=== PATIENT | female | born 2000 | race Caucasian/White ===

== ENCOUNTER 2021-12-15 11:28 | Outpatient (CLI) | payer OTHER, SELFPAY ==
[2021-12-15 19:02] LABS: Basophils Absolute Auto 0.1 K/mm3 (0.0-0.1); Basophils Percent Auto 0.9 % (0.2-1.2); Eosinophils Absolute Auto 0.1 K/mm3 (0-0.3); Eosinophils Percent Auto 1.5 % (0-4.4); Hematocrit 43.5 % (37.0-47.0); Hemoglobin 14.3 g/dL (12.0-15.0); Immature Granulocyte Absolute 0.12 K/mm3 (0.00-0.031); Immature Granulocyte Percent A 1.4 % (0-0.5); Lymphocytes Absolute Auto 2.09 K/mm3 (0.9-3.2); Mean Corpuscular HGB Conc 32.9 g/dl (32-36); Mean Corpuscular Hemoglobin 30.3 pg (26-34); Mean Corpuscular Volume 92.2 fl (80-100); Mean Platelet Volume 9.2 fl (7.4-10.4); Monocytes Absolute Auto 0.6 K/mm3 (0.1-0.6); Monocytes Percent Auto 6.5 % (2.6-8.5); Neutrophils Absolute Auto 5.7 K/mm3 (1.3-6.7); Neutrophils Percent Auto 65.7 % (45.5-73.1); Platelet Count Result 411 k/mm3 (150-375); Red Blood Count 4.72 M/mm3 (4.2-5.4); Red Cell Distribution Width 12.1 % (11.5-14.5); White Blood Count 8.7 K/mm3 (4.5-10.0)
[2021-12-15 19:06] LABS: Alanine Aminotransferase 81 U/L (6-35); Albumin Level 4.6 g/dL (3.5-5.1); Alkaline Phosphatase 77 U/L (38-126); Anion Gap 9 mmol/L (8-16); Aspartate Amino Transferase 113 U/L (14-36); Bilirubin,Total 0.3 mg/dL (0.2-1.3); Blood Urea Nitrogen 9 mg/dL (7-17); Calcium 9.4 mg/dL (8.4-10.2); Carbon Dioxide 30 mmol/L (22-30); Chloride 100 mmol/L (98-107); Cholesterol 183 mg/dL (0-200); Estimated Glomerular Filt Rate > 60; Glucose 161 mg/dL (65-110); HDL Direct 50 mg/dL; Potassium 4.2 mmol/L (3.4-5.0); Sodium 139 mmol/L (137-145); Triglycerides 69 mg/dL (<150)
[2021-12-15 19:31] LABS: Hemoglobin A1C 6.5 % (<5.7)
[2021-12-15 19:33] LABS: LDL Cholesterol Direct 114 mg/dL
[2021-12-15 20:32] LABS: Vitamin D 25 Hydroxy 19.2 ng/mL
== END 2021-12-15 11:29 | disposition home or self-care (01) ==
LOC: ANHGOSHLAB 11:29
PROVIDERS: PCP Family Medicine; Visit Provider Family Medicine
DX: F50.9 Eating disorder, unspecified (principal); E55.9 Vitamin D deficiency, unspecified; R73.9 Hyperglycemia, unspecified; Z13.220 Encounter for screening for lipoid disorders; R63.5 Abnormal weight gain
CPT/HCPCS: 36415; 80053; 80061; 82306; 83036; 84439; 84443; 85025

== ENCOUNTER 2021-12-25 14:39 | Outpatient (CLI) | payer OTHER, SELFPAY ==
[2021-12-25 20:27] LABS: Add Urine Microscopic? YES; Appearance Urine Cloudy (Clear); Bacteria Urine Trace /hpf; Bilirubin Urine Negative (Negative); Blood Urine Negative (Negative); Color Urine Yellow (Yellow); Glucose Urine UA Negative (Negative); Ketones Urine Negative (Negative); Leukocyte Esterase Ur Trace LEU/UL (NEGATIVE); Mucus Urine Moderate /lpf; Nitrate Urine Negative (Negative); Protein Urine Negative (Negative); Specific Grav Ur 1.016 (1.001-1.035); Squamous Epithelial Cell Urine Many /hpf (Few); Urobilinogen Urine Negative mg/dL (<2.0)
[2021-12-25 20:51] LABS: Creatinine Urine 203.5 mg/dL
[2021-12-25 20:55] LABS: Hepatitis B Surface Antigen Negative (Negative)
[2021-12-25 20:56] LABS: MALB Creatinine Ratio 6.4 mg/g (0-30)
[2021-12-25 21:01] LABS: HAV RESULT Negative (Negative); Hepatitis B Core IgM Result Negative (Negative)
[2021-12-25 21:12] LABS: Hepatitis C Virus Antibody Negative (Negative)
== END 2021-12-25 14:40 | disposition home or self-care (01) ==
LOC: ANHGOSHLAB 14:40
PROVIDERS: PCP Family Medicine; Visit Provider Family Medicine
DX: R74.8 Abnormal levels of other serum enzymes (principal); E11.9 Type 2 diabetes mellitus without complications; R30.0 Dysuria
CPT/HCPCS: 36415; 80074; 81001; 82043

== ENCOUNTER 2021-12-31 16:15 | Emergency (ER) | payer OTHER, SELFPAY ==
[2021-12-31 16:28] LABS: Glucose Point of Care 101 mg/dl (65-105)
[2021-12-31 16:30] VITALS: BP 134/87; PULSE 137; RESP 20; TEMP 36.9; O2SAT 98
--- NOTE | 2021-12-31 16:34 | ECG_ITS ---
Measurements Intervals [place] Rate: 107 P: 41 GA: 145 QRS: 44 QRSD: 92 T: 20 QT: 307 QTc: 410 Interpretive Statements SINUS TACHYCARDIA INCOMPLETE RIGHT BUNDLE BRANCH BLOCK [90+ ms QRS DURATION, TERMINAL R IN V1/V2, 40+ ms S IN I/aVL/V4/V5/V6] ABNORMAL RHYTHM ECG NO PREVIOUS ECG AVAILABLE FOR COMPARISON Electronically Signed On 01-01-2022 13:51:43 CDT by Han Miller M.D.
--- NOTE | 2021-12-31 16:57 | ED.RECABL ---
HPI - Recheck/Abnormal Lab/Rx General Chief Complaint: Recheck/Abnormal Lab/Rx Stated Complaint: elevated blood glucose Time Seen by Provider: 12/31/21 16:51 Source: patient, family and RN notes reviewed Mode of arrival: ambulatory Limitations: no limitations History of Present Illness HPI narrative: 21 years old white female came to the emergency room because feeling tired, weak with blurry vision started this morning. Patient had a stressful morning. Blood glucose at that time was 199, later 172, on arrival to the emergency room 102. Patient recently diagnosed of type 2 diabetes 1 week ago, she denies any fever, chills, nausea, vomiting. Related Data Home Medications Medication Instructions Recorded Confirmed aripiprazole 10 mg tablet (Abilify) 10 mg PO DAILY 12/10/21 12/29/21 dextroamphetamine-amphetamine 10 10 mg PO DAILY 12/10/21 12/29/21 mg tablet (Adderall) trazodone 100 mg tablet 100 mg PO QHS PRN 12/10/21 12/29/21 zolpidem 10 mg tablet (Ambien) 20 mg PO QHS PRN 12/10/21 12/29/21 Allergies Allergy/AdvReac Type Severity Reaction Status Date / Time adhesive tape Allergy Intermediate Rash Verified 12/31/21 16:16 Review of Systems Review of Systems: All systems reviewed & are unremarkable except as noted in HPI and below PMFSH Past Medical History Medical History ADHD Allergies Anxiety Arthritis Chronic post-traumatic stress disorder (PTSD) Depression Eating disorder Tarsal tunnel syndrome, bilateral lower limbs Surgical History Surgical History S/P ligament repair Family History Family History Father Alcoholism Depression Anxiety Grandparent Alcoholism Cancer Diabetes mellitus Hypertension Cerebrovascular accident Mother Anxiety Depression Sibling Depression Anxiety Social History Social History Smoking status: Current every day smoker (Smokes marijuana) Alcohol intake: current Alcohol use details: Hard Liquor/mixed drinks- every other week Additional occupation/education comments: [employer] Agree to blood products: Yes Exam Narrative: General appearance: Well-developed, well-nourished Skin: Normal color Head: Normocephalic, nontraumatic Eyes: Clear conjunctiva ENT: Oropharynx normal, ears normal, nose normal Neck: Supple, nontender Chest and respiratory: Airway patent, no respiratory distress, no accessory muscle use Heart: Regular rate/rhythm Abdomen: Soft, nontender, no organomegaly, quiet bowel sounds Vascular: Normal peripheral pulses, normal capillary refill. Musculoskeletal: Normal range of motion, nontender back Neurologic: Alert and oriented ?3, [employer]IDE is normal as tested, no gross motor deficit Course Course Emergency Course: Recently diagnosed of diabetes, 1 week ago, and anxiety/stress are my concern. Blood glucose is almost normal, have nothing to do with her symptoms at this time. Vital Signs Vital signs: Vital Signs Temperature 36.9 C 12/31/21 16:30 Pulse Rate 137 H 12/31/21 16:30 Respiratory Rate 20 12/31/21 16:30 Blood Pressure 134/87 12/31/21 16:30 Pulse Oximetry 98 12/31/21 16:30 Oxygen Delivery Room Air 12/31/21 16:30 Temperature 36.9 C 12/31/21 16:30 Pulse Rate 137 H 12/31/21 16:30 Respiratory Rate 20 12/31/21 16:30 Blood Pressure 134/87 12/31/21 16:30 Pulse Oximetry 98 12/31/21 16:30 Oxygen Delivery Room Air 12/31/21 16:30 MDM - Recheck/Abnormal Lab/Rx Differential Diagnosis Differential diagnosi
[2021-12-31 17:14] VITALS: PULSE 70; RESP 12
== END 2021-12-31 17:14 | disposition home or self-care (01) ==
LOC: ANHED 17:27
PROVIDERS: Emergency Provider Emergency Medicine; PCP Family Medicine
DX: E11.9 Type 2 diabetes mellitus without complications (principal); F41.9 Anxiety disorder, unspecified; M19.90 Unspecified osteoarthritis, unspecified site; F32.9 Major depressive disorder, single episode, unspecified; F90.9 Attention-deficit hyperactivity disorder, unspecified type
CPT/HCPCS: 82948; 93005; 99283

== ENCOUNTER 2022-01-06 14:36 | Outpatient (RCR) | payer OTHER, SELFPAY ==
[2022-01-06 14:58] VITALS: BMI 33.9
[2022-01-07 10:29] VITALS: BMI 33.9
== END 2022-04-06 23:59 | disposition home or self-care (01) ==
LOC: ANHDMC 14:36
PROVIDERS: PCP Family Medicine; Visit Provider Family Medicine
DX: E11.9 Type 2 diabetes mellitus without complications (principal); Z71.3 Dietary counseling and surveillance
CPT/HCPCS: 97802; 99199

== ENCOUNTER 2022-02-05 09:26 | Outpatient (CLI) | payer OTHER, SELFPAY ==
--- NOTE | ~2022-02-05 | US_ITS ---
US abdomen complete DATE: 02/05/2022 10:37 INDICATION: Elevated liver enzymes TECHNIQUE: Real-time imaging and Doppler analysis of the abdomen COMPARISON: None FINDINGS: No hepatic, pancreatic, splenic or renal mass lesion. Normal hepatopedal portal venous flow direction. No hydronephrosis. No gallstones, gallbladder wall or pericholecystic fluid. Negative sonographic Rainey's sign. The common bile duct measures 2.5 mm, normal. Normal caliber of the abdominal aorta. The inferior vena cava is unremarkable. IMPRESSION: Negative Reviewed, dictated and finalized at [facility]. Reviewed, dictated and finalized at [facility]. L [facility] IMPRESSION: Negative
== END 2022-02-05 09:27 | disposition home or self-care (01) ==
PROVIDERS: PCP Family Medicine; Visit Provider Family Medicine
DX: R74.8 Abnormal levels of other serum enzymes (principal)
CPT/HCPCS: 76700

== ENCOUNTER 2022-04-03 15:35 | Outpatient (CLI) | payer OTHER, SELFPAY ==
[2022-04-03 20:14] LABS: Vitamin D 25 Hydroxy 32.8 ng/mL
== END 2022-04-03 15:36 | disposition home or self-care (01) ==
LOC: ANHGOSHLAB 15:38
PROVIDERS: PCP Family Medicine; Visit Provider Family Medicine
DX: E55.9 Vitamin D deficiency, unspecified (principal)
CPT/HCPCS: 36415; 82306

== ENCOUNTER 2022-05-06 13:03 | Outpatient (CLI) | payer BC, SELFPAY ==
[2022-05-06 20:23] LABS: Alanine Aminotransferase 101 U/L (6-35); Alkaline Phosphatase 63 U/L (38-126); Anion Gap 9 mmol/L (8-16); Aspartate Amino Transferase 103 U/L (14-36); Bilirubin,Total 0.7 mg/dL (0.2-1.3); Blood Urea Nitrogen 6 mg/dL (7-17); Calcium 9.7 mg/dL (8.4-10.2); Carbon Dioxide 28 mmol/L (22-30); Chloride 102 mmol/L (98-107); Estimated Glomerular Filt Rate > 60; Glucose 113 mg/dL (65-110); Potassium 4.4 mmol/L (3.4-5.0); Sodium 139 mmol/L (137-145)
[2022-05-06 20:36] LABS: Hemoglobin A1C 5.5 % (<5.7)
[2022-05-06 21:22] LABS: Creatinine Urine 141.7 mg/dL
[2022-05-06 21:27] LABS: MALB Creatinine Ratio 18.3 mg/g (0-30); Microalbumin Urine Random 25.9 mg/L (0-16.7)
== END 2022-05-06 13:04 | disposition home or self-care (01) ==
LOC: ANHGOSHLAB 13:04
PROVIDERS: PCP Family Medicine; Visit Provider Clinical Nurse Specialist
DX: E11.9 Type 2 diabetes mellitus without complications (principal)
CPT/HCPCS: 36415; 80053; 82043; 82607; 83036

== ENCOUNTER 2022-11-05 08:18 | Outpatient (CLI) | payer BC, SELFPAY ==
[2022-11-08 09:17] LABS: Testosterone Total 50 ng/dL (2-45)
[2022-11-08 15:57] LABS: FSH 8.3 mIU/mL (***); LH 19.9 mIU/mL (***); Prolactin 7.5 ng/mL (***)
[2022-11-12 20:40] LABS: Estradiol, Ultrasensitive 36 pg/mL
== END 2022-11-05 08:19 | disposition home or self-care (01) ==
PROVIDERS: PCP Family Medicine; Visit Provider Student in an Organized Health Care Education/Training Program
DX: N91.1 Secondary amenorrhea (principal)
CPT/HCPCS: 36415; 82670; 83001; 83002; 84146; 84403; 84443